=== PATIENT | female | born 1970 | race Hispanic/Latino ===

== ENCOUNTER 2016-03-17 17:28 | Inpatient (IN) | payer OTHER ==
--- NOTE | 2016-03-17 18:22 | Emergency Department Report ---
Chief Complaint: Dizziness Stated Complaint: DIZZY - HPI History of Present Illness: Patient with Pulmonary HTN, Hypothyroidism, GERD, plantar fascitis states had a Dizzy spell with room spinning, nauseous, weak this morning. States symptoms lasted about 1 hour, have resolved, except for weakness. States told by she was slurring her words. Patient states she was referred to ED by PCP for evaluation. LMP 2015, menopause. - Exam Vital Signs: Vital Signs 03/17/16 18:08 Temperature 98.4 F Pulse Rate 75 Respiratory 18 Rate Blood Pressure 151/95 O2 Sat by Pulse 99 Oximetry Physical Exam: general: NAD. Heart: RRR. Neuro: AAO x3. MSE screening note: Focused history and physical exam performed. Due to findings the following was ordered: ED Medical Decision Making - Medical Decision Making Labs ordered. Patient awaits being seen by MD in main ED. ED Disposition for MSE Condition: Stable
[2016-03-17 19:31] LABS: Eosinophils % (Auto) 2.6 % (0.0-4.3); Hemoglobin 13.6 gm/dl (10.1-14.3); Mean Corpuscular HGB Conc 33 % (30-34); Mean Corpuscular Hemoglobin 29 pg (28-32); Mean Corpuscular Volume 86 fl (79-97); Platelet Count 479 K/mm3 (140-440); Red Blood Count 4.77 M/mm3 (3.65-5.03); Red Cell Distribution Width 13.9 % (13.2-15.2); White Blood Count 9.4 K/mm3 (4.5-11.0)
[2016-03-17 19:54] LABS: Alanine Aminotransferase 40 units/L (7-56); Albumin 4.1 g/dL (3.9-5); Alkaline Phosphatase 108 units/L (35-129); Anion Gap 18 mmol/L; BUN/Creatinine Ratio 28.33; Bilirubin,Total 0.4 mg/dL (0.1-1.2); Blood Urea Nitrogen 17 mg/dL (7-17); Calcium 9.5 mg/dL (8.4-10.2); Carbon Dioxide 25 mmol/L (22-30); Chloride 99.6 mmol/L (98-107); Glucose 83 mg/dL (65-100); Potassium 4.1 mmol/L (3.6-5.0); Sodium 138 mmol/L (137-145); Total Protein 8.1 g/dL (6.3-8.2)
[2016-03-17 22:37] LABS: Bilirubin,Urine NEG (Negative); Blood,Urine SM (Negative); Ketones,Urine NEG (Negative); Leukocyte Esterase,Urine LG (Negative); Mucus,Urine FEW /HPF; Nitrite,Urine NEG (Negative); Protein,Urine <15 mg/dL mg/dL (Negative); Urobilinogen,Urine < 2.0 mg/dL (<2.0)
[2016-03-18] MEDS ORDERED: MACROBID PO ONE (01:31)
--- NOTE | 2016-03-18 01:38 | Emergency Department Report ---
HPI - General Chief Complaint: Dizziness Time Seen by Provider: 03/18/16 01:19 - HPI HPI: This is a 45-year-old female who presents to the emergency department with complaint of some dizziness, weakness, room spinning and some slurred speech that occurred this morning upon waking. Patient says it felt like she was going to pass out and like the room was spinning. She has felt very fatigued. Patient says that her family felt like she was slurring her speech at that time. EMS was called and they came out to see her and checked her vitals and suggested that she either go to the emergency department or see her primary care doctor. She saw her PCP today, Dr. Echeverria, who recommended she come to the emergency department for further evaluation. Patient currently feels fatigued with some generalized weakness but denies any current dizziness, vertigo-like symptoms or any slurred speech. She has a past medical history of pulmonary hypertension, hypothyroidism, GERD and migraines. She denies any history of CVA, AK, PE/DVT. No recent travel or sick contacts at home. She denies tobacco abuse. She denies illicit drug use or abuse. ED Past Medical Hx - Past Medical History Hx Hypertension: Yes Hx CVA: No Hx Heart Attack/AMI: No - Social History Smoking Status: Never Smoker Substance Use Type: None - Medications Home Medications: Home Medications Medication Instructions Recorded Confirmed Last Taken Type Aspirin [Baby Aspirin] 81 mg PO QDAY 01/02/13 01/02/13 01/01/13 20:00 History Bisoprolol Fumarate [Bisoprolol 5 mg PO QDAY 01/02/13 01/02/13 01/01/13 21:00 History Fumarate] Levothyroxine [Synthroid] 50 mcg PO QAM 01/02/13 01/02/13 01/01/13 10:00 History Mometasone/Formoterol [Dulera 100 2 puff IH BID 01/02/13 01/02/13 12/31/12 12: 00 History Mcg/5 Mcg Inhaler] Norgestimate-Ethinyl Estradiol 1 tab PO QDAY 01/02/13 01/02/13 01/01/13 20:00 History [Tri-Previfem] Omeprazole [Omeprazole] 40 mg PO QDAY 01/02/13 01/02/13 01/01/13 20:00 History Spironolactone [Aldactone] 25 mg PO QDAY 01/02/13 01/02/13 01/01/13 10:00 History HYDROcodone/APAP 5-325 [[place] 1 each PO Q6HR PRN #12 tablet 03/31/14 Unknown Rx 5-325 mg TAB] Ibuprofen [Motrin 800 MG tab] 800 mg PO Q6H PRN #30 tablet 03/31/14 Unknown Rx ED Review of Systems ROS: Stated complaint: DIZZY Other details as noted in HPI Comment: All other systems reviewed and negative Constitutional: denies: chills, fever Eyes: denies: eye pain, eye discharge, vision change ENT: denies: ear pain, throat pain Respiratory: denies: cough, shortness of breath, wheezing Cardiovascular: denies: chest pain, palpitations Gastrointestinal: denies: abdominal pain, nausea, diarrhea Genitourinary: denies: urgency, dysuria, discharge Musculoskeletal: denies: back pain, joint swelling, arthralgia Skin: denies: rash, lesions Neurological: weakness, vertigo, other (dizziness, slurred speech that has resolved) Physical Exam - Physical Exam Vital Signs: Vital Signs 03/17/16 03/18/16 18:08 00:30 Temperature 98.4 F 98.2 F Pulse Rate 75 86 Respiratory 18 18 Rate Blood Pressure 151/95 Blood Pressure 135/101 [Left] O2 Sat by Pulse 99 98 Oximetry Physical Exam: GENERAL: The patient is well-developed well-nourished. HEENT: Normocephalic. Atraumatic. Extraocular motions are intact. Patient has moist mucous membranes. Pupils equal reactive to light bilaterally. Patient has fatigable horizontal nystagmus. Tongue is midline. NECK: Supple. Trachea is midline. CHEST/LUNGS: Clear to auscultation. There is no respiratory distress noted. HEART/CARDIOVASCULAR: Regular. There is no tachycardia. There is no gallop rub or murmur. ABDOMEN: Abdomen is soft, nontender. Patient has normal bowel sounds. There is no abdominal distention. Morbidly obese habitus. SKIN: There is no rash. There is no edema. There is no diaphoresis. NEURO: The patient is awake, alert, and oriented. The patient is cooperative. The patient has no focal neurologic deficits. The patient has normal speech. Cranial nerves II through XII grossly intact. No pronator drift or dysmetria. MUSCULOSKELETAL: There is no tenderness or deformity. There is no limitation range of motion. There is no evidence of acute injury. Muscle strength 5 out of 5 for upper and lower extremities bilaterally. ED Course Vital Signs 03/17/16 03/18/16 18:08 00:30 Temperature 98.4 F 98.2 F Pulse Rate 75 86 Respiratory 18 18 Rate Blood Pressure 151/95 Blood Pressure 135/101 [Left] O2 Sat by Pulse 99 98 Oximetry ED Medical Decision Making - Lab Data Result diagrams: 03/17/16 19:21 03/17/16 19:21 - EKG Data -: EKG Interpreted by Nd EKG shows normal: sinus rhythm, axis, intervals, QRS complexes, ST-T waves (T- wave inversions to the septal and anterior leads that are unchanged from previous) Rate: normal - EKG Data When compared to previous EKG there are: no significant change Interpretation: unchanged when compared t (01/02/13) - Radiology Data Radiology results: report reviewed CT of the head does not show any acute process including no hemorrhage, mass, shift, diffuse edema or skull fracture. - Medical Decision Making 45-year-old female presents to the emergency department for evaluation after she woke up this morning, became very dizzy and lightheaded, nearly passed out, was witnessed having slurred speech. Since that time there is been no further slurred speech but the patient remains dizzy and has some generalized weakness. EKG does not show any signs of ST elevation AK. CT of the brain does not show any bleed, shift, mass or any acute process. Patient's labs do not show any etiology of the patient's symptoms. However with the history described there is concern the patient may have had a TIA. She'll be admitted to the hospital for further evaluation and has been accepted by the hospitalist, Dr. Romero. - Differential Diagnosis TIA, CVA, seizure, thyroid dysfunction Critical Care Time: No Critical care attestation.: If time is entered above; I have spent that time in minutes in the direct care of this critically ill patient, excluding procedure time. ED Disposition Clinical Impression: Weakness TIA (transient ischemic attack) Qualifiers: Transient cerebral ischemia type: unspecified Qualified Code(s): G45.9 - Transient cerebral ischemic attack, unspecified Disposition: OP ADMITTED IP TO THIS HOSP Is pt being admited?: Yes Condition: Stable Time of Disposition: 05:34
--- NOTE | 2016-03-18 02:28 | Cat Scan Report ---
FINAL REPORT PROCEDURE: CT HEAD/BRAIN WO CON TECHNIQUE: Computerized tomography of the head was performed without contrast material. HISTORY: Dizziness, Lightheaded, Slurred Speech COMPARISON: No prior studies are available for comparison. FINDINGS: Skull and scalp: Normal. Paranasal sinuses: Mild opacification of the ethmoid sinuses. Ventricles and subarachnoid spaces: Normal. Cerebrum: No evidence of hemorrhage, acute infarction or mass . Cerebellum and brainstem: No evidence of hemorrhage, acute infarction or mass. Vasculature: Normal. Comments: None. IMPRESSION: There is no evidence of an acute intracranial process.
[2016-03-18] MEDS ORDERED: BABY ASPIRIN PO ONE (04:28)
--- NOTE | 2016-03-18 05:31 | History and Physical Report ---
History of Present Illness Date of examination: 03/18/16 Date of admission: 03/18/16 Chief complaint: slurred speech and dizziness History of present illness: This is a 45-year-old female with past medical history of pulmonary hypertension, hypothyroidism, GERD and migraines who presents to the emergency department with complaint of some dizziness, weakness, room spinning and some slurred speech that occurred this morning at approximately 5 AM upon waking. Patient says it felt like she was going to pass out and like the room was spinning. She has felt very fatigued. Patient says that her family felt like she was slurring her speech at that time. EMS was called and they came out to see her and checked her vitals and suggested that she either go to the emergency department or see her primary care doctor. She saw her PCP today, Dr. Echeverria, who recommended she come to the emergency department for further evaluation. Patient currently feels fatigued with some generalized weakness but denies any current dizziness, vertigo-like symptoms or any slurred speech. Patient denies any cough or cold-like symptoms. No chest pain or shortness of breath. No fever chills. No nausea, vomiting or abdominal pain. Past History Past Medical History: GERD, hyperlipidemia, hypothyroidism, other (pulmonary htn ) Past Surgical History: No surgical history Social history: no significant social history Family history: no significant family history Medications and Allergies Allergies Allergy/AdvReac Type Severity Reaction Status Date / Time No Known Allergies Allergy Unverified 10/30/12 13:52 Home Medications Medication Instructions Recorded Confirmed Last Taken Type Aspirin [Baby Aspirin] 81 mg PO QDAY 01/02/13 01/02/13 01/01/13 20:00 History Bisoprolol Fumarate [Bisoprolol 5 mg PO QDAY 01/02/13 01/02/13 01/01/13 21:00 History Fumarate] Levothyroxine [Synthroid] 50 mcg PO QAM 01/02/13 01/02/13 01/01/13 10:00 History Mometasone/Formoterol [Dulera 100 2 puff IH BID 01/02/13 01/02/13 12/31/12 12: 00 History Mcg/5 Mcg Inhaler] Norgestimate-Ethinyl Estradiol 1 tab PO QDAY 01/02/13 01/02/13 01/01/13 20:00 History [Tri-Previfem] Omeprazole [Omeprazole] 40 mg PO QDAY 01/02/13 01/02/13 01/01/13 20:00 History Spironolactone [Aldactone] 25 mg PO QDAY 01/02/13 01/02/13 01/01/13 10:00 History HYDROcodone/APAP 5-325 [[place] 1 each PO Q6HR PRN #12 tablet 03/31/14 Unknown Rx 5-325 mg TAB] Ibuprofen [Motrin 800 MG tab] 800 mg PO Q6H PRN #30 tablet 03/31/14 Unknown Rx Review of Systems All systems: negative Exam - Constitutional Vitals: Temp Pulse Resp BP Pulse Ox 98 F 79 12 120/81 100 03/18/16 02:53 03/18/16 04:28 03/18/16 04:28 03/18/16 04:28 03/18/16 04:28 General appearance: Present: no acute distress, well-nourished - EENT Eyes: Present: PERRL ENT: hearing intact, clear oral mucosa - Neck Neck: Present: supple, normal ROM - Respiratory Respiratory effort: normal Respiratory: bilateral: CTA - Cardiovascular Heart Sounds: Present: S1 & S2. Absent: rub, click - Extremities Extremities: pulses symmetrical, No edema Peripheral Pulses: within normal limits - Abdominal General gastrointestinal: Present: soft, non-tender, non-distended, normal bowel sounds Female genitourinary: Present: normal - Integumentary Integumentary: Present: clear, warm, dry - Musculoskeletal Musculoskeletal: gait normal, strength equal bilaterally - Psychiatric Psychiatric: appropriate mood/affect, intact judgment & insight - Neurologic Neurologic: CNII-XII intact, moves all extremities Results - Labs CBC & Chem 7: 03/17/16 19:21 03/17/16 19:21 Labs: Laboratory Last Values WBC 9.4 K/mm3 (4.5-11.0) 03/17/16 19:21 RBC 4.77 M/mm3 (3.65-5.03) 03/17/16 19:21 Hgb 13.6 gm/dl (10.1-14.3) 03/17/16 19:21 Hct 41.0 % (30.3-42.9) 03/17/16 19:21 MCV 86 fl (79-97) 03/17/16 19:21 MCH 29 pg (28-32) 03/17/16 19:21 MCHC 33 % (30-34) 03/17/16 19:21 RDW 13.9 % (13.2-15.2) 03/17/16 19:21 Plt Count 479 K/mm3 (140-440) H 03/17/16 19:21 Lymph % (Auto) 35.3 % (13.4-35.0) H 03/17/16 19:21 Garza % (Auto) 9.3 % (0.0-7.3) H 03/17/16 19:21 Eos % (Auto) 2.6 % (0.0-4.3) 03/17/16 19:21 Baso % (Auto) 1.0 % (0.0-1.8) 03/17/16 19:21 Lymph # 3.3 K/mm3 (1.2-5.4) 03/17/16 19:21 Garza # 0.9 K/mm3 (0.0-0.8) H 03/17/16 19:21 Eos # 0.2 K/mm3 (0.0-0.4) 03/17/16 19:21 Baso # 0.1 K/mm3 (0.0-0.1) 03/17/16 19:21 Seg Neutrophils % 51.8 % (40.0-70.0) 03/17/16 19:21 Seg Neutrophils # 4.9 K/mm3 (1.8-7.7) 03/17/16 19:21 Sodium 138 mmol/L (137-145) 03/17/16 19:21 Potassium 4.1 mmol/L (3.6-5.0) 03/17/16 19:21 Chloride 99.6 mmol/L (98-107) 03/17/16 19:21 Carbon Dioxide 25 mmol/L (22-30) 03/17/16 19:21 Anion Gap 18 mmol/L 03/17/16 19:21 BUN 17 mg/dL (7-17) 03/17/16 19:21 Creatinine 0.6 mg/dL (0.7-1.2) L 03/17/16 19:21 Estimated GFR > 60 ml/min 03/17/16 19:21 BUN/Creatinine Ratio 28.33 % 03/17/16 19:21 Glucose 83 mg/dL (65-100) 03/17/16 19:21 POC Glucose 76 (70-105) 03/17/16 18:29 Calcium 9.5 mg/dL (8.4-10.2) 03/17/16 19:21 Total Bilirubin 0.4 mg/dL (0.1-1.2) 03/17/16 19:21 AST 30 units/L (5-40) 03/17/16 19:21 ALT 40 units/L (7-56) 03/17/16 19:21 Alkaline Phosphatase 108 units/L (35-129) 03/17/16 19:21 Troponin T < 0.010 ng/mL (0.00-0.029) 03/18/16 02:23 Total Protein 8.1 g/dL (6.3-8.2) 03/17/16 19:21 Albumin 4.1 g/dL (3.9-5) 03/17/16 19:21 Albumin/Globulin Ratio 1.0 % 03/17/16 19:21 TSH 3.910 mlU/mL (0.270-4.200) 03/18/16 02:23 Urine Color Barbra (Yellow) 03/17/16 22:20 Urine Turbidity Cloudy (Clear) 03/17/16 22:20 Urine pH 5.0 (5.0-7.0) 03/17/16 22:20 Ur Specific [place] 1.020 (1.003-1.030) 03/17/16 22:20 Urine Protein <15 mg/dl mg/dL (Negative) 03/17/16 22:20 Urine Glucose (UA) Neg mg/dL (Negative) 03/17/16 22:20 Urine Ketones Neg mg/dL (Negative) 03/17/16 22:20 Urine Blood Sm (Negative) 03/17/16 22:20 Urine Nitrite Neg (Negative) 03/17/16 22:20 Urine Bilirubin Neg (Negative) 03/17/16 22:20 Urine Urobilinogen < 2.0 mg/dL (<2.0) 03/17/16 22:20 Ur Leukocyte Esterase Lg (Negative) 03/17/16 22:20 Urine WBC (Auto) 182.0 /HPF (0.0-6.0) H 03/17/16 22:20 Urine RBC (Auto) 4.0 /HPF (0.0-6.0) 03/17/16 22:20 U Epithel Cells (Auto) 4.0 /HPF (0-13.0) 03/17/16 22:20 Urine Mucus Few /HPF 03/17/16 22:20 Assessment and Plan Assessment and plan: 1. Acute CVA. Patient reports symptoms of dysarthria. Patient will be placed on the CVA pathway. We will follow-up echocardiogram, MRI/MRA and carotid ultrasound. 2. Pulmonary hypertension. Supportive care. 3. Hypothyroidism. Check TSH. 4. GERD. Protonix daily. 5. DVT prophylaxis. Lovenox daily.
[2016-03-18] MEDS ORDERED: ZOFRAN IV PRN (05:33)
[2016-03-18] MEDS ORDERED: TYLENOL PO PRN (05:33)
[2016-03-18] MEDS ORDERED: MILK OF MAGNESIA PO PRN (05:33)
[2016-03-18] MEDS ORDERED: PHENERGAN PR PRN (05:33)
[2016-03-18] MEDS ORDERED: DULCOLAX PR PRN (05:33)
[2016-03-18] MEDS ORDERED: REGLAN PO PRN (05:33)
[2016-03-18] MEDS ORDERED: SODIUM CHLORIDE FLUSH SYRINGE 10 ML IV PRN (05:33)
--- NOTE | 2016-03-18 07:06 | Admit Criteria Form ---
Admission Criteria Documentation: TRANSIENT ISCHEMIC ATTACK (TIA) Clinical Indications for Admission to Inpatient Care (Place 'X' for any and all applicable criteria): Admission is indicated for ANY ONE of the following(1)(2)(3)(4)(5): [ ]I. Immediate inpatient procedure is needed (eg, endarterectomy). [X]II. Inpatient admission required rather than observation care (Also use Transient Ischemic Attack (TIA): Observation Care Criteria as appropriate) because of ANY ONE of the following: [ ]a) Focal neurologic signs or symptoms persist or recurring [ ]b) Cardiac arrhythmias of immediate concern [ ]c) Clinically significant cardiac disorder identified that requires inpatient care (eg, severe valvular disease, atrial myxoma, cardiomyopathy) []d) Hypertension requiring inpatient treatment [ ]e) Parenteral anticoagulation required (eg, alternative forms of anticoagulation not appropriate or not feasible) as indicated by ALL of the following(13): [ ]i) Temporary subtherapeutic anticoagulation unacceptable because of high risk of short-term venous or arterial thromboembolism due to ANY ONE of the following(14)(15)(16): [ ]1) Atrial fibrillation suspected as etiology of TIA(17)(18)(19)(20)(21) [ ]2) Venous thromboembolism within past 12 months [ ]3) Underlying malignancy [ ]4) Patient with mechanical cardiac valve(22)( 23) [ ]5) Underlying hypercoagulable state (eg, protein C or protein S deficiency antithrombin deficiency, antiphospholipid antibodies) [ ]6) Patient at temporary high risk of thromboembolism (eg, status post orthopedic surgery) [ ]ii) Contraindications to outpatient use of "bridging" agent or alternative oral anticoagulant[B] as indicated by ALL of the following: [ ]1) Contraindication to outpatient use of low- molecular-weight heparin as "bridging" agent as indicated by ANY ONE of the following(15): [ ]A. Documented current or history of heparin-induced thrombocytopenia(24) [ ]B. Severe thrombocytopenia (eg, platelet count less than 50,000/mm3 (64w296/L) [ ]C. Documented allergy to heparin, low- molecular-weight heparin, or pork products [ ]D. Renal failure (creatinine clearance less than 30 mL/min/1.73m2 (0.50mL/sec/1.73m2) or on dialysis) [ ]E. Inability to manage self-injection ( eg, by patient, caregiver, or visiting nurse) [ ]2) Contraindication to outpatient use of fondaparinux as "bridging" agent as indicated by ANY ONE of the following(25)(26 )(27)(28): [ ]A. Severe thrombocytopenia (eg, platelet count less than 50,000/mm3 (50 x109/L)) [ ]B.Hypersensitivity to fondaparinux, related drugs, or product components [ ]C.Renal failure (creatinine clearance less than 30 mL/min/1.73m2 (0.50mL/sec/1.73m2) or on dialysis) [ ]D.Inability to manage self-injection ( eg, by patient, caregiver, or visiting nurse [ ]3. Oral direct thrombin inhibitor (eg, dabigatran) or oral coagulation factor Xa inhibitor (eg, rivaroxaban, apixaban) not appropriate as oral anticoagulation (eg, indication not appropriate) or contraindicated (eg, hypersensitivity, creatinine clearance less than 15 mL/min/1.73m2 ( 0.25 mL/sec/1.73m2) or on dialysis). [ ]f) Continuous IV infusion of anticoagulant, platelet inhibitor, vasoactive or antiarrhythmia(18)(19) [X ]g) Other condition, treatment, or monitoring requiring inpatient admission [ ]III. Contraindications and/or Inappropriate clinical situations for Observational Care in patients with Transient Ischemic Attack (TIA), when ANY ONE of the following is required: [ ]a) Patient with persistent or severe neurological deficit 24 [ ]b) Patient with acute CVA or other identified pathology should be admitted to inpatient for further care 25 [ ]IV. General contraindications and/or Inappropriate clinical situations for Observational Care in patients with Transient Ischemic Attack (TIA), when ANY ONE of the following is required: [ ]a) Prediction of prolongation of LOS based on ANY ONE of the following may be considered as a contraindication for observational care 2, 3, 4, 5, 6, 7, 8, 9, 10, 11 [ ]i) Age > 65 yrs. [ ]ii) Patient arriving by ambulance [ ]iii) Patient with high acuity [ ]iv) Patient requiring vital sign monitoring [ ]v) Patient on IV medication [ ]b) Systolic blood pressures 180mmHg 3,12 [ ]c) Patient with altered mental status including delirium and other alteration of consciousness, (3) [ ]d) Patient whose discharge disposition will be to a [facility] home or rehabilitation home should not be managed in Emergency Department Observation Unit. CMS rule requires 3 days hospital stay before such placement.3,13 [ ]e) Patient with failure to thrive due to broad array of etiologies 3,16,17 [ ]f) Inability to ambulate 3,14 Extended stay beyond goal length of stay may be needed for(4)(30)(32): [ ]a) Parenteral anticoagulation required [ ]b) Dangerous arrhythmia [ ]c) Cardiac valvular disorder, atrial myxoma, cardiomyopathy [ ]d) Uncontrolled severe hypertension [ ]e) Severe carotid stenosis [ ]f) Active comorbidities (eg, heart failure) [ ]g) Extracranial vertebrobasilar disease(29) [ ]h) Clinical evolution of TIA into cerebrovascular accident (stroke) The original [employer] content created by [employer] has been revised. The portions of thecontent which have been revised are identified through the use of italic text or in bold, and [facility] has neither reviewed nor approved the modified material. All other unmodified content is copyright [facility]. Please see references footnoted in the original [facility] edition 2016 Admission Criteria Met: Yes
[2016-03-18 08:18] VITALS: BP 132/90
--- NOTE | 2016-03-18 09:36 | Magnetic Resonance Report ---
MRI BRAIN WITHOUT CONTRAST INDICATION: Stroke. COMPARISON: Head CT from earlier today. FINDINGS: Noncontrast multiplanar and multisequence MRI of the brain demonstrates normal ventricles and sulci without acute infarct, hemorrhage, mass effect or midline shift. No abnormal extra-axial masses or fluid collections. Minimal benign basal ganglia calcifications. Normal major intracranial vascular flow voids. Normal posterior fossa structures with symmetric seventh and eighth nerve complexes. Symmetric, grossly unremarkable eye globes. Mild to moderate leftward nasal septal bowing. Left more than right ethmoid sinusitis. Mild left maxillary sinus mucosal thickening inferiorly as well. Clear remainder imaged paranasal sinuses and mastoid air cells. 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 Normal remainder midline structures without evidence of Chiari malformation. CONCLUSION: No acute intracranial MRI abnormality with few incidental findings, including mild sinusitis, as described. Please correlate. Thank you for the opportunity to participate in this patient's care.
--- NOTE | 2016-03-18 09:38 | Magnetic Resonance Report ---
MRA HEAD WITHOUT CONTRAST INDICATION: Stroke. COMPARISON: None similar. FINDINGS: MRA of the head performed without intravenous contrast and demonstrates no evidence of flow-limiting stenosis, occlusion or vascular malformation. Please note that detection of aneurysms less than 5 mm is limited on this exam. CONCLUSION: Normal study of the [place]. Thank you for the opportunity to participate in this patient's care.
[2016-03-18] MEDS ORDERED: NORCO 5/325 PO PRN (10:00)
[2016-03-18] MEDS ORDERED: PROTONIX PO SCH (10:00)
[2016-03-18] MEDS ORDERED: BISOPROLOL FUMARATE 5 MG PO SCH (10:00)
[2016-03-18] MEDS ORDERED: ALDACTONE PO SCH (10:00)
[2016-03-18] MEDS ORDERED: LOVENOX SUB-Q SCH (10:00)
[2016-03-18] MEDS ORDERED: NON-FORMULARY (Mometasone/Formoterol [Dulera 100 Mcg/5 Mcg Inhaler] 2 PUFF) IH SCH (10:00)
[2016-03-18] MEDS ORDERED: BABY ASPIRIN PO SCH (10:00)
[2016-03-18] MEDS ORDERED: SYNTHROID PO SCH (10:00)
[2016-03-18] MEDS ORDERED: ASPIRIN PO SCH (10:00)
[2016-03-18] MEDS ORDERED: NON-FORMULARY (Omeprazole [Omeprazole] 40 MG) PO SCH (10:00)
--- NOTE | 2016-03-18 10:47 | Discharge Summary ---
Providers - Providers Date of Admission: 03/18/16 05:33 Date of discharge: 03/18/16 Attending physician: BRIGITTE GREEN MD Primary care physician: SCRAP CUTTER Hospitalization Reason for admission: slurred speech Condition: Stable Hospital course: 5-year-old female with past medical history of pulmonary hypertension , hypothyroidism, GERD and migraines who presents to the emergency department with complaint of some dizziness, weakness, room spinning and some slurred speech that occurred this morning at approximately 5 AM upon waking. Patient says it felt like she was going to pass out and like the room was spinning. She has felt very fatigued. Patient says that her family felt like she was slurring her speech at that time. EMS was called and they came out to see her and checked her vitals and suggested that she either go to the emergency department or see her primary care doctor. She saw her PCP today, Dr. Echeverria, who recommended she come to the emergency department for further evaluation. Patient currently feels fatigued with some generalized weakness but denies any current dizziness, vertigo-like symptoms or any slurred speech. Patient denies any cough or cold-like symptoms. No chest pain or shortness of breath. No fever chills. No nausea, vomiting or abdominal pain. Patient on admission presented to have a CT of the brain which was negative and also proceeded to get an MRI which was also negative cancer in her history and medical condition this was determined to be a TIA. I did upgrade her from regular aspirin to Aggrenox. Four-month follow-up with primary care physician. She also is noted to be taken estradiol for which I discussed this extensively with her and need to discontinue this she will discuss this with her primary care physician. Discharge diagnosis 1. TIA 2. Pulmonary hypertension. 3. Hypothyroidism. 4. GERD. Disposition: DISCHARGED TO HOME OR SELFCARE Time spent for discharge: 35 mins Core Measure Documentation - Palliative Care Palliative Care/ Comfort Measures: Not Applicable - Core Measures Any of the following diagnoses?: none - VTE Discharge Requirements Deep Vein Thrombosis/Pulmonary Embolism Present on Admission: No Exam - Physical Exam Narrative exam: VITAL SIGNS: Reviewed. GENERAL: The patient appeared well nourished and normally developed. Vital signs as documented. HEAD: No signs of head trauma. EYES: Pupils are equal. Extraocular motions intact. EARS: Hearing grossly intact. MOUTH: Oropharynx is normal. NECK: No adenopathy, no JVD. CHEST: Chest with clear breath sounds bilaterally. No wheezes, rales, or rhonchi. CARDIAC: Regular rate and rhythm. S1 and S2, without murmurs, gallops, or rubs. VASCULAR: No Edema. Peripheral pulses normal and equal in all extremities. ABDOMEN: Soft, without detectable tenderness. No sign of distention. No rebound or guarding, and no masses palpated. Bowel Sounds normal. MUSCULOSKELETAL: Good range of motion of all major joints. Extremities without clubbing, cyanosis or edema. NEUROLOGIC EXAM: Alert and oriented x 3. No focal sensory or strength deficits. Speech normal. Follows commands. PSYCHIATRIC: Mood normal. SKIN: No rash or lesions. - Constitutional Vitals: Temp Pulse Resp BP Pulse Ox 98 F 79 12 132/90 96 03/18/16 02:53 03/18/16 04:28 03/18/16 04:28 03/18/16 08:00 03/18/16 08:00 Plan Activity: advance as tolerated, fall precautions Diet: low fat Special Instructions: record daily BP diary Additional Instructions: will recommend discontinuing the Estridiole, patient should discuss with PCP. also recommend Neurology evaluation outpatient. Follow up with: PRIMARY CARE, [Primary Care Provider] - 3-5 Days PHILLIP REYES MD [Staff Physician] - 7 Days Prescriptions: Simvastatin [Zocor TAB] 20 mg PO QHS #30 tablet Aspirin/Dipyridamole [Aspirin-Dipyridam ER 25-200 mg] 1 each PO BID #30
--- NOTE | 2016-03-18 12:40 | Echocardiography Report ---
Transthoracic Echocardiogram Indication: Stroke BP: 120/81 Conclusions *The left ventricular chamber size is normal. *Global left ventricular wall motion and contractility are within normal limits. *The estimated ejection fraction is 55-60%. Findings Left Ventricle: The left ventricular chamber size is normal. Global left ventricular wall motion and contractility are within normal limits. Global left ventricular systolic function is normal. The estimated ejection fraction is 55-60%. Normal left ventricular diastolic filling is observed. Left Atrium: The left atrium is normal in size with no visual thrombus identified. Right Ventricle: The right ventricular cavity size is normal. The right ventricular global systolic function is normal. Right Atrium: The right atrium appears normal. The interatrial septum appears normal. Aortic Valve: The aortic valve structure is normal. There is no evidence of aortic regurgitation. There is no evidence of aortic stenosis. Mitral Valve: The mitral valve leaflets appear normal. There is no evidence of mitral regurgitation. There is no evidence of mitral stenosis. Tricuspid Valve: The tricuspid valve leaflets are normal. There is trace tricuspid regurgitation. The right ventricular systolic pressure is calculated at 19 mmHg. There is no tricuspid stenosis. Pulmonic Valve: The pulmonic valve appears normal. There is no evidence of pulmonic regurgitation. There is no pulmonic stenosis. Pericardium: There is no pericardial effusion. Aorta: There is no dilatation of the ascending aorta. There is no dilatation of the aortic arch. There is no dilatation of the descending thoracic aorta. There is no dilatation of the aortic root. Venous: The inferior vena cava is not visualized. Measurements Chambers MM Name Value Normal Range Ao root diameter (MM) 2.2 cm (2 - 3.7) LA dimension (AP) MM 3 cm (1.9 - 4) LA:Ao ratio (MM) 1.36 ratio - AV cusp separation (MM) 1.3 cm (1.5 - 2.6) Chambers 2D Name Value Normal Range IVSd (2D) 0.87 cm (0.6 - 1.1) LVPWd (2D) 0.86 cm (0.6 - 1.1) IVS:LVPW ratio (2D) 1.01 ratio - LVIDd (2D) 4.01 cm (3.7 - 5.6) LVIDs (2D) 2.65 cm (2 - 3.8) LV FS (Teichholz) (2D) 33.9 % - LV FS (cube) (2D) 33.9 % - EF Teichholz (2D) 63.4 % - LA dimension (AP) 2D 3.4 cm (1.9 - 4) Volumes/Mass Name Value Normal Range LA ESV SP 4CH (MOD) 20 ml - LA ESV SP 2CH (MOD) 22 ml - LA ESV BP (MOD) 22 ml - LA ESV BP (MOD) index 12.4 ml/m2 - Diastolic/Systolic Function Name Value Normal Range MV E-wave Vmax 0.78 m/sec - MV deceleration time 197 msec - MV A-wave Vmax 0.69 m/sec - MV E:A ratio 1.1 ratio - LV septal e' Vmax 0.09 m/sec - LV lateral e' Vmax 0.11 m/sec - LV E:e' septal ratio 9.1 ratio - LV E:e' lateral ratio 7.3 ratio - Aortic Valve Name Value Normal Range AV VTI 29.2 cm - AV mean gradient 5 mmHg - LVOT diameter 2 cm - LVOT VTI 22.9 cm - LVOT mean gradient 3 mmHg - SV LVOT 72 ml - JORDAN (continuity VTI) 2.46 cm2 - Mitral Valve Name Value Normal Range MV PHT 47 msec - MVA (PHT) 4.68 cm2 - Tricuspid Valve Name Value Normal Range TR Vmax 2 m/sec - TR peak gradient 16 mmHg - RAP 3 mmHg - RVSP 19 mmHg - Pulmonic Valve/Qp:Qs Name Value Normal Range PV Vmax 1.09 m/sec - PV peak gradient 5 mmHg - PV acceleration time 144 msec -
[2016-03-18] MEDS ORDERED: PULMICORT IH SCH (20:00)
[2016-03-18] MEDS ORDERED: BROVANA NEBU IH SCH (20:00)
[2016-03-18] MEDS ORDERED: ZOCOR PO SCH (22:00)
== END 2016-03-18 12:56 | disposition home or self-care (01) | DRG 69 ==
LOC: ED 17:28 → 4A 03-18 05:33
PROVIDERS: ADMIT Hospitalist; ATTEND Internal Medicine
DX: G45.9 Transient cerebral ischemic attack, unspecified (principal); I27.2 Other secondary pulmonary hypertension; E03.9 Hypothyroidism, unspecified; K21.9 Gastro-esophageal reflux disease without esophagitis; G43.909 Migraine, unspecified, not intractable, without status migrainosus; I10 Essential (primary) hypertension; E78.5 Hyperlipidemia, unspecified; Z79.899 Other long term (current) drug therapy; Z79.82 Long term (current) use of aspirin
CPT/HCPCS: 36415; 70450; 70544; 70551; 80053; 81001; 82962; 84443; 84484; 85025; 87086; 93005; 93010; 93306; 96372; J1650